=== PATIENT | male | born 1945 | race Caucasian/White ===

== ENCOUNTER 2023-03-25 19:11 | Inpatient (IN) | payer MEDICARE, OTHER ==
[2023-03-25 20:53] LABS: Critical Call Chem Troponin I NUR.AEB@0824; Troponin I 0.237 ng/mL (< 0.028)
[2023-03-25] MEDS ORDERED: Calcium Carbonate 500 MG ChewTAB PO PRN (20:54)
[2023-03-25] MEDS ORDERED: Guaifenesin DM 100-10/5 ML UDCUP PO PRN (20:54)
[2023-03-25] MEDS ORDERED: Ondansetron PF 4 MG/2 ML Vial IVP PRN (20:54)
[2023-03-25] MEDS ORDERED: Senokot S 8.6-50 MG TAB PO PRN (20:54)
[2023-03-25] MEDS ORDERED: Nitroglycerin 2% Ointment 1 INCH/1 GM Packet TOP SCH (21:00)
[2023-03-25] MEDS ORDERED: Sodium Chloride 0.9% 500 ML IV SCH (21:00)
[2023-03-25] MEDS ORDERED: NIACIN 1000 MG PO SCH (21:00)
[2023-03-25] MEDS ORDERED: Atorvastatin Calcium 40 MG TAB PO SCH (21:00)
[2023-03-25] MEDS: Enoxaparin 30 MG (0.3 mL) SYRINGE SC SCH (23:13)
[2023-03-25] MEDS: Metoprolol Tartrate 25 MG TAB PO SCH (23:13)
[2023-03-25] MEDS: Gabapentin 100 MG CAP PO SCH (23:14)
[2023-03-25] MEDS: Fish Oil 1,000 MG CAP PO SCH (23:14)
[2023-03-25] MEDS: Atorvastatin Calcium 10 MG TAB PO SCH (23:15)
[2023-03-25 23:29] VITALS: BMI 20.9
[2023-03-26 05:32] LABS: Anion Gap 12 mmol/L (10-20); BUN (Urea Nitrogen) 28 mg/dL (8.4-25.7); Calc. Creatinine Clearance 18 mL/min (70-130); Calcium 8.4 mg/dL (7.8-10.44); Carbon Dioxide 20 mmol/L (23-31); Chloride 104 mmol/L (98-107); Estimated GFR 22; Glucose 90 mg/dL (83-110); Sodium 132 mmol/L (136-145)
[2023-03-26 05:37] LABS: #Eosinphils 0.2 10x3/uL (0.0-0.5); #Monocytes 0.6 10x3/uL (0.0-1.1); #Neutrophils 5.3 10x3/uL (1.5-8.4); %Basophils 0.5 % (0.0-2.0); %Eosinophils 2.3 % (0.0-6.0); %Lymphocytes 17.6 % (18.0-47.0); %Neutrophils 71.1 % (40.0-75.0); Hematocrit 30.1 % (38.8-50.0); Hemoglobin 10.7 g/dL (13.5-17.5); Mean Corpuscular HGB CONC 35.5 g/dL (32.0-36.0); Mean Corpuscular Hemoglobin 36.9 pg (27.0-33.0); Mean Corpuscular Volume 103.8 fl (81.2-95.1); Mean Platelet Volume 10.9 fl (7.4-10.4); Platelet Count 151 10x3/uL (150-450); RBC Distribution Width 13.2 % (11.5-14.5); White Blood Cell (WBC) Count 7.5 10x3/uL (3.5-10.5)
[2023-03-26 05:55] LABS: Thyroid Stimulating Hormone 2.6182 uIU/mL (0.35-4.94)
[2023-03-26 06:24] LABS: Critical Call Chem Troponin I NUR.DDB
[2023-03-26] MEDS: Cilostazol 100 MG TAB PO SCH ×2 (08:49→16:02)
[2023-03-26] MEDS: Isosorbide Mononitrate 30 MG ER.TAB PO SCH (08:50)
[2023-03-26] MEDS: Cholecalciferol 1,000 UNITS (25 MCG) TAB PO SCH (08:51)
[2023-03-26] MEDS: Fish Oil 1,000 MG CAP PO SCH ×2 (08:52→21:28)
[2023-03-26] MEDS: Aspirin 81 mg Enteric Coated Tablet PO SCH (08:53)
[2023-03-26] MEDS: Gabapentin 100 MG CAP PO SCH ×3 (08:53→21:29)
[2023-03-26] MEDS: Metoprolol Tartrate 25 MG TAB PO SCH ×2 (08:53→21:29)
[2023-03-26] MEDS: Folic Acid/Vit B Comp W-C PO SCH (08:54)
[2023-03-26] MEDS ORDERED: FLU VACC QS2023(65UP)/MF59C/PF 60 MCG/0.5 ML SYRINGE IM ONE (09:00)
[2023-03-26] MEDS ORDERED: Sodium Chloride 0.9% 1,000 ML IV SCH (17:30)
[2023-03-26] MEDS ORDERED: Cyanocobalamin 1000 MCG/ML VIAL IM SCH (18:00)
[2023-03-26] MEDS: Enoxaparin 30 MG (0.3 mL) SYRINGE SC SCH (21:28)
[2023-03-26] MEDS: Atorvastatin Calcium 10 MG TAB PO SCH (21:28)
[2023-03-26] MEDS: Acetaminophen 325 MG TAB PO PRN (23:58)
[2023-03-27 04:53] LABS: #Eosinphils 0.2 10x3/uL (0.0-0.5); #Monocytes 0.7 10x3/uL (0.0-1.1); #Neutrophils 6.2 10x3/uL (1.5-8.4); %Basophils 0.4 % (0.0-2.0); %Eosinophils 2.4 % (0.0-6.0); %Monocytes 7.8 % (0.0-10.0); %Neutrophils 69.2 % (40.0-75.0); Hematocrit 28.1 % (38.8-50.0); Mean Corpuscular HGB CONC 35.6 g/dL (32.0-36.0); Mean Corpuscular Volume 106.8 fl (81.2-95.1); Mean Platelet Volume 10.8 fl (7.4-10.4); Platelet Count 147 10x3/uL (150-450); RBC Distribution Width 13.1 % (11.5-14.5); Red Blood Cell (RBC) Count 2.63 10x6/uL (4.32-5.72); White Blood Cell (WBC) Count 8.9 10x3/uL (3.5-10.5)
[2023-03-27 05:07] LABS: Anion Gap 11 mmol/L (10-20); BUN (Urea Nitrogen) 35 mg/dL (8.4-25.7); BUN/Creatinine Ratio 10.87; Calc. Creatinine Clearance 17 mL/min (70-130); Calcium 8.1 mg/dL (7.8-10.44); Carbon Dioxide 21 mmol/L (23-31); Chloride 106 mmol/L (98-107); Estimated GFR 19; Glucose 94 mg/dL (83-110); Phosphorus 3.2 mg/dL (2.3-4.7); Potassium 4.3 mmol/L (3.5-5.1); Sodium 134 mmol/L (136-145)
[2023-03-27] MEDS: Cilostazol 100 MG TAB PO SCH ×2 (07:36→18:35)
[2023-03-27] MEDS: Folic Acid/Vit B Comp W-C PO SCH (09:00)
[2023-03-27] MEDS ORDERED: Tamsulosin HCl 0.4 MG CAP PO SCH ×2 (11:00→18:30)
[2023-03-27] MEDS: Cholecalciferol 1,000 UNITS (25 MCG) TAB PO SCH (11:03)
[2023-03-27] MEDS: Fish Oil 1,000 MG CAP PO SCH ×2 (11:03→21:27)
[2023-03-27] MEDS: Aspirin 81 mg Enteric Coated Tablet PO SCH (11:04)
[2023-03-27] MEDS: Gabapentin 100 MG CAP PO SCH ×3 (11:04→21:27)
[2023-03-27] MEDS: Isosorbide Mononitrate 30 MG ER.TAB PO SCH (11:04)
[2023-03-27] MEDS: Metoprolol Tartrate 25 MG TAB PO SCH ×2 (11:05→21:29)
[2023-03-27] MEDS ORDERED: hydrALAZINE 20 MG/ML VIAL SLOW IVP PRN (13:41)
[2023-03-27] MEDS: Sodium Chloride 0.9% 1,000 ML IV SCH (18:35)
[2023-03-27] MEDS: hydrALAZINE 25 MG TAB PO SCH (21:28)
[2023-03-27] MEDS: Donepezil HCl 5 MG TAB PO SCH (21:28)
[2023-03-27] MEDS: Atorvastatin Calcium 10 MG TAB PO SCH (21:30)
[2023-03-27] MEDS: Enoxaparin 30 MG (0.3 mL) SYRINGE SC SCH (21:32)
[2023-03-28] MEDS: Sodium Chloride 0.9% 1,000 ML IV SCH ×2 (02:12→17:37)
[2023-03-28 04:07] LABS: #Eosinphils 0.2 10x3/uL (0.0-0.5); #Monocytes 0.7 10x3/uL (0.0-1.1); #Neutrophils 7.6 10x3/uL (1.5-8.4); %Basophils 0.3 % (0.0-2.0); %Lymphocytes 14.5 % (18.0-47.0); %Monocytes 7.1 % (0.0-10.0); %Neutrophils 75.6 % (40.0-75.0); Hematocrit 26.9 % (38.8-50.0); Hemoglobin 9.3 g/dL (13.5-17.5); Mean Corpuscular HGB CONC 34.6 g/dL (32.0-36.0); Mean Corpuscular Hemoglobin 36.6 pg (27.0-33.0); Mean Corpuscular Volume 105.9 fl (81.2-95.1); Mean Platelet Volume 11.1 fl (7.4-10.4); Platelet Count 152 10x3/uL (150-450); RBC Distribution Width 13.2 % (11.5-14.5); Red Blood Cell (RBC) Count 2.54 10x6/uL (4.32-5.72); White Blood Cell (WBC) Count 10.1 10x3/uL (3.5-10.5)
[2023-03-28 04:22] LABS: Anion Gap 12 mmol/L (10-20); BUN (Urea Nitrogen) 34 mg/dL (8.4-25.7); Calc. Creatinine Clearance 17 mL/min (70-130); Carbon Dioxide 21 mmol/L (23-31); Chloride 109 mmol/L (98-107); Estimated GFR 19; Glucose 101 mg/dL (83-110); Potassium 4.5 mmol/L (3.5-5.1); Sodium 137 mmol/L (136-145)
[2023-03-28] MEDS: Folic Acid/Vit B Comp W-C PO SCH (09:00)
[2023-03-28] MEDS: Isosorbide Mononitrate 30 MG ER.TAB PO SCH (11:32)
[2023-03-28] MEDS: Tamsulosin HCl 0.4 MG CAP PO SCH (11:33)
[2023-03-28] MEDS: hydrALAZINE 25 MG TAB PO SCH ×2 (11:33→21:02)
[2023-03-28] MEDS: Cholecalciferol 1,000 UNITS (25 MCG) TAB PO SCH (11:33)
[2023-03-28] MEDS: Aspirin 81 mg Enteric Coated Tablet PO SCH (11:33)
[2023-03-28] MEDS: Fish Oil 1,000 MG CAP PO SCH ×2 (11:34→21:02)
[2023-03-28] MEDS: Gabapentin 100 MG CAP PO SCH ×3 (11:34→21:01)
[2023-03-28] MEDS: Metoprolol Tartrate 25 MG TAB PO SCH ×2 (11:35→21:02)
[2023-03-28] MEDS: Cilostazol 100 MG TAB PO SCH ×2 (11:35→17:36)
[2023-03-28] MEDS: traMADol HCl 50 MG TAB PO PRN (12:02)
[2023-03-28] MEDS: Enoxaparin 30 MG (0.3 mL) SYRINGE SC SCH (21:02)
[2023-03-28] MEDS: Atorvastatin Calcium 10 MG TAB PO SCH (21:02)
[2023-03-28] MEDS: Donepezil HCl 5 MG TAB PO SCH (21:02)
[2023-03-29] MEDS: Acetaminophen 325 MG TAB PO PRN (00:02)
[2023-03-29 03:40] LABS: #Eosinphils 0.2 10x3/uL (0.0-0.5); #Monocytes 0.7 10x3/uL (0.0-1.1); #Neutrophils 7.5 10x3/uL (1.5-8.4); %Basophils 0.3 % (0.0-2.0); %Eosinophils 1.9 % (0.0-6.0); %Lymphocytes 14.6 % (18.0-47.0); %Monocytes 7.3 % (0.0-10.0); %Neutrophils 75.5 % (40.0-75.0); Hematocrit 24.8 % (38.8-50.0); Hemoglobin 8.7 g/dL (13.5-17.5); Mean Corpuscular HGB CONC 35.1 g/dL (32.0-36.0); Mean Corpuscular Hemoglobin 37.5 pg (27.0-33.0); Mean Corpuscular Volume 106.9 fl (81.2-95.1); Mean Platelet Volume 10.8 fl (7.4-10.4); Platelet Count 134 10x3/uL (150-450); RBC Distribution Width 13.1 % (11.5-14.5); Red Blood Cell (RBC) Count 2.32 10x6/uL (4.32-5.72); White Blood Cell (WBC) Count 9.9 10x3/uL (3.5-10.5)
[2023-03-29 04:13] LABS: Anion Gap 11 mmol/L (10-20); BUN (Urea Nitrogen) 33 mg/dL (8.4-25.7); Calc. Creatinine Clearance 19 mL/min (70-130); Calcium 7.9 mg/dL (7.8-10.44); Carbon Dioxide 18 mmol/L (23-31); Chloride 109 mmol/L (98-107); Estimated GFR 23; Glucose 111 mg/dL (83-110); Potassium 4.2 mmol/L (3.5-5.1); Sodium 134 mmol/L (136-145)
[2023-03-29] MEDS: Cilostazol 100 MG TAB PO SCH ×2 (10:54→17:43)
[2023-03-29] MEDS: hydrALAZINE 25 MG TAB PO SCH ×2 (10:55→21:51)
[2023-03-29] MEDS: Gabapentin 100 MG CAP PO SCH ×3 (10:55→21:44)
[2023-03-29] MEDS: Aspirin 81 mg Enteric Coated Tablet PO SCH (10:55)
[2023-03-29] MEDS: Fish Oil 1,000 MG CAP PO SCH ×2 (10:55→21:44)
[2023-03-29] MEDS: Metoprolol Tartrate 25 MG TAB PO SCH ×2 (10:55→21:50)
[2023-03-29] MEDS: Isosorbide Mononitrate 30 MG ER.TAB PO SCH (10:56)
[2023-03-29] MEDS: Folic Acid/Vit B Comp W-C PO SCH (10:56)
[2023-03-29] MEDS: Tamsulosin HCl 0.4 MG CAP PO SCH (10:56)
[2023-03-29] MEDS: Cholecalciferol 1,000 UNITS (25 MCG) TAB PO SCH (10:56)
[2023-03-29] MEDS: traMADol HCl 50 MG TAB PO PRN (13:50)
[2023-03-29] MEDS: Sodium Chloride 0.9% 1,000 ML IV SCH (17:42)
[2023-03-29] MEDS: Donepezil HCl 5 MG TAB PO SCH (21:45)
[2023-03-29] MEDS: Atorvastatin Calcium 10 MG TAB PO SCH (21:45)
[2023-03-29] MEDS: Enoxaparin 30 MG (0.3 mL) SYRINGE SC SCH (21:45)
[2023-03-30 05:28] LABS: #Eosinphils 0.3 10x3/uL (0.0-0.5); #Monocytes 0.6 10x3/uL (0.0-1.1); #Neutrophils 6.1 10x3/uL (1.5-8.4); %Basophils 0.5 % (0.0-2.0); %Lymphocytes 15.8 % (18.0-47.0); %Monocytes 7.2 % (0.0-10.0); Hematocrit 24.8 % (38.8-50.0); Hemoglobin 8.6 g/dL (13.5-17.5); Mean Corpuscular HGB CONC 34.7 g/dL (32.0-36.0); Mean Corpuscular Hemoglobin 37.7 pg (27.0-33.0); Mean Corpuscular Volume 108.8 fl (81.2-95.1); Mean Platelet Volume 10.8 fl (7.4-10.4); Platelet Count 150 10x3/uL (150-450); RBC Distribution Width 13.1 % (11.5-14.5); Red Blood Cell (RBC) Count 2.28 10x6/uL (4.32-5.72); White Blood Cell (WBC) Count 8.4 10x3/uL (3.5-10.5)
[2023-03-30] MEDS: Sodium Chloride 0.9% 1,000 ML IV SCH (07:10)
[2023-03-30] MEDS: hydrALAZINE 25 MG TAB PO SCH (09:55)
[2023-03-30] MEDS: Gabapentin 100 MG CAP PO SCH (09:56)
[2023-03-30] MEDS: Fish Oil 1,000 MG CAP PO SCH (09:57)
[2023-03-30] MEDS: Cholecalciferol 1,000 UNITS (25 MCG) TAB PO SCH (09:57)
[2023-03-30] MEDS: Isosorbide Mononitrate 30 MG ER.TAB PO SCH (09:58)
[2023-03-30] MEDS: Tamsulosin HCl 0.4 MG CAP PO SCH (09:58)
[2023-03-30] MEDS: Metoprolol Tartrate 25 MG TAB PO SCH (09:58)
[2023-03-30] MEDS: Cilostazol 100 MG TAB PO SCH (09:59)
[2023-03-30] MEDS: Aspirin 81 mg Enteric Coated Tablet PO SCH (10:49)
[2023-03-30] MEDS: Folic Acid/Vit B Comp W-C PO SCH (10:49)
[2023-03-30 12:47] VITALS: BP 115/68; TEMP 98
== END 2023-03-30 16:35 | disposition home health service (06) | DRG 682 ==
LOC: CSHERS 19:11 → CSHTELE 21:52
PROVIDERS: ADMIT Student in an Organized Health Care Education/Training Program; ATTEND Internal Medicine
DX: N17.9 Acute kidney failure, unspecified (principal); I21.A1 Myocardial infarction type 2; I13.0 Hypertensive heart and chronic kidney disease with heart failure and stage 1 through stage 4 chronic kidney disease, or unspecified chronic kidney disease; E87.1 Hypo-osmolality and hyponatremia; I50.30 Unspecified diastolic (congestive) heart failure; N18.4 Chronic kidney disease, stage 4 (severe); D53.9 Nutritional anemia, unspecified; R55 Syncope and collapse; Z88.2 Allergy status to sulfonamides; Z79.82 Long term (current) use of aspirin; Z79.899 Other long term (current) drug therapy; E78.5 Hyperlipidemia, unspecified; Z98.890 Other specified postprocedural states; F17.210 Nicotine dependence, cigarettes, uncomplicated; D63.1 Anemia in chronic kidney disease; F01.50 Vascular dementia, unspecified severity, without behavioral disturbance, psychotic disturbance, mood disturbance, and anxiety; K21.9 Gastro-esophageal reflux disease without esophagitis; I73.9 Peripheral vascular disease, unspecified; E53.8 Deficiency of other specified B group vitamins; Z91.148 Patient's other noncompliance with medication regimen for other reason; R33.9 Retention of urine, unspecified; I77.9 Disorder of arteries and arterioles, unspecified
CPT/HCPCS: 36415; 80048; 80069; 82607; 84443; 84484; 85025; 93005; 93306; 93880; J1650; J3420; J7030; J7050